=== PATIENT | male | born 1995 | race Caucasian/White ===

== ENCOUNTER → 2018-03-25 | Emergency (ER) | payer SELFPAY ==
[2018-03-25] MEDS: IBUPROFEN 600 MG TAB PO (20:58)
== END | disposition home or self-care (01) ==
LOC: FTE 19:08
DX: M25.572 Pain in left ankle and joints of left foot (principal)
CPT/HCPCS: 29515; 73610; 73630-LT; 99283-25

== ENCOUNTER 2018-04-24 23:33 | Emergency (ER) | payer OTHER ==
[2018-04-25] MEDS: LORAZEPAM 2 MG INJ IM (00:31)
[2018-04-25 01:08] LABS: BARBITURATES Negative (NEGATIVE); BENZODIAZEPINES Negative (NEGATIVE); CANNABINOIDS Positive (NEGATIVE); COCAINE Negative (NEGATIVE); OPIATES Negative (NEGATIVE)
[2018-04-25 01:17] LABS: ETHANOL < 10.0 mg/dl
[2018-04-25 01:22] LABS: AMPHETAMINE/METHAMPHETAMINE Positive (NEGATIVE)
[2018-04-25 01:25] LABS: ADD UMIC NO; UR ASCORBIC ACID NEGATIVE (NEGATIVE); UR BILIRUBIN (Dip) NEGATIVE (NEGATIVE); UR BLOOD (Dip) NEGATIVE (NEGATIVE); UR CLARITY CLEAR (CLEAR); UR COLOR STRAW (YELLOW); UR GLUCOSE (Dip) NEGATIVE (NEGATIVE); UR KETONES (Dip) NEGATIVE (NEGATIVE); UR LEUKOCYTE ESTERASE (Dip) NEGATIVE Leu/ul (NEGATIVE); UR NITRITE (Dip) NEGATIVE (NEGATIVE); UR SPECIFIC GRAVITY (Dip) 1.008 (1.003-1.030); UR TOTAL PROTEIN (Dip) NEGATIVE (NEGATIVE); UR UROBILINOGEN (Dip) NEGATIVE (NEGATIVE)
== END 2018-04-25 07:35 | disposition home or self-care (01) ==
LOC: E/R 23:33
DX: F15.180 Other stimulant abuse with stimulant-induced anxiety disorder (principal); R00.2 Palpitations; F17.210 Nicotine dependence, cigarettes, uncomplicated
CPT/HCPCS: 80307; 81003; 93005; 96372; 99284-25

== ENCOUNTER 2018-08-29 12:29 | Emergency (ER) | payer OTHER ==
[2018-08-29] MEDS: IBUPROFEN 600 MG TAB PO (14:31)
== END 2018-08-29 15:00 ==
LOC: E/R 12:29
DX: M54.2 Cervicalgia (principal); F17.210 Nicotine dependence, cigarettes, uncomplicated
CPT/HCPCS: 70450; 72125; 99284-25

== ENCOUNTER 2018-12-05 04:56 | Emergency (ER) | payer OTHER ==
[2018-12-05] MEDS: CEFTRIAXONE 1 GM INJ IM (06:33)
[2018-12-05] MEDS: LIDOCAINE 1% (MPF) 5 ML VIAL INJ (06:33)
== END 2018-12-05 06:46 | disposition home or self-care (01) ==
LOC: FTE 04:56
DX: L03.113 Cellulitis of right upper limb (principal); J45.909 Unspecified asthma, uncomplicated; F17.210 Nicotine dependence, cigarettes, uncomplicated
CPT/HCPCS: 96372; 99284-25

== ENCOUNTER 2019-02-11 10:16 | Emergency (ER) | payer SELFPAY, OTHER | END 2019-02-11 10:40 | disposition left against medical advice (07) | LOC: FTE 10:16 | DX: Z53.21 Procedure and treatment not carried out due to patient leaving prior to being seen by health care provider (principal) ==